=== PATIENT | female | born 1965 | race Two or more races ===

== ENCOUNTER 2024-02-11 12:00 | Emergency (ER) | payer MEDICAID, OTHER ==
[~2024-02-11] VITALS: Ht 152.4 cm; Wt 56.8 kg
[2024-02-11] MEDS ORDERED: AUG875T PO (14:29)
[2024-02-11] MEDS: cefTRIAXone SOD 1,000 MG VL IM ONE (14:35)
[2024-02-11] MEDS: DexAMETHasone SOD PHOS 10MG/1ML VIAL INJ IM ONE (14:35)
[2024-02-11 15:19] LABS: Rapid Strep A Screen-Throat Negative
[2024-02-11 15:26] LABS: Rapid Influenza A Negative (Negative); Rapid Influenza B Negative (Negative)
[2024-02-11 15:29] LABS: COVID19 ANTIGEN SOFIA FIA POSITIVE (NEGATIVE)
[2024-02-11] MEDS ORDERED: ACET-1882 PO (15:54)
[2024-02-11] MEDS ORDERED: GUAI600T78 PO (15:54)
[2024-02-11] MEDS: SODIUM CHLORIDE 0.9% 500 ML IV ONE (16:06)
[2024-02-11 17:09] VITALS: BP 157/75; PULSE 92; RESP 16; TEMP 98.6; O2SAT 98
== END 2024-02-11 17:20 | disposition home or self-care (01) ==
LOC: ER 12:00
DX: U07.1 COVID-19 (principal); E11.9 Type 2 diabetes mellitus without complications; I10 Essential (primary) hypertension
CPT/HCPCS: 36415; 87070; 87426; 87804; 87880; 96360; 96372; 99284; J0696; J1100; J7040